=== PATIENT | male | born 1930 | race Caucasian/White ===

== ENCOUNTER 2018-07-07 10:54 | Observation (INO) ==
--- NOTE | 2018-07-07 11:23 | ED ---
HPI General Chief Complaint: Chest Pain Stated Complaint: cardiac Time Seen by Provider: 07/07/18 11:01 Source: patient Mode of arrival: ambulatory Limitations: no limitations History of Present Illness HPI narrative: Is an 87-year-old man presents to the emergency department complaining of left-sided chest discomfort, with some pressure, ongoing for the past day or so. Worse today. Constant. Has some mild intermittent symptoms occasionally has a history of CAD with CABG and ID in the remote past. Patient is a little bit of a poor historian, and has difficulty relating some details of his history. Follows with a inspecting machine adjuster. Is not sure who. He has prescription bottles from Dr. Flanagan. Is a history of Parkinson's disease as well. Patient was at home with his who is his primary caregiver. He walks with a walker. Denies any other recent illness or injury. Related Data Home Medications Medication Instructions Recorded Confirmed aspirin 81 mg PO DAILY 07/07/18 07/07/18 atenolol 25 mg PO DAILY 07/07/18 07/07/18 carbidopa-levodopa 1 tab PO QID 07/07/18 07/07/18 gabapentin 300 mg PO TID 07/07/18 07/07/18 memantine 5 mg PO BID 07/07/18 07/07/18 simvastatin 40 mg PO QPM 07/07/18 07/07/18 Allergies Allergy/AdvReac Type Severity Reaction Status Date / Time No Known Allergies Allergy Uncoded 04/23/15 14:35 Review of Systems ROS: all other systems reviewed are negative [facility] Medical History Medical History High cholesterol (Chronic) Hypertension (Chronic) Parkinson disease (Chronic) CAD (coronary artery disease) (Chronic) Surgical History Surgical History Hx of CABG (Chronic) Social History Social History Substance History: No History of Abuse Second Hand Smoke Exposure: No Smoking Status: Never smoker How Often Do You Have a Drink Containing Alcohol: Never Recent Travel in [facility] within the Last 8 Weeks: No Recent Out of Country Travel within the Last 8 Weeks: No Immunization History Tetanus Immunization: Unsure Hx Influenza Vaccine This Season: Yes Exam Narrative Exam Narrative: GENERAL: 87-year-old man, generally well-appearing, no acute distress per SKIN: Focused skin assessment warm/dry. HEAD: Atraumatic. Normocephalic. EYES: Pupils equal and round. No scleral icterus. No injection or drainage. ENT: No nasal bleeding or discharge. Mucous membranes pink and moist. Parkinsonian Stoic facies. NECK: Trachea midline. No JVD. CARDIOVASCULAR: Regular rate and rhythm. No murmur appreciated. Significant pectus. Midline CABG scar. Well-healed. RESPIRATORY: No accessory muscle use. Clear to auscultation. Breath sounds equal bilaterally. GASTROINTESTINAL: Abdomen soft, non-tender, nondistended. Hepatic and splenic margins not palpable. MUSCULOSKELETAL: No obvious deformities. Decreased muscle bulk. NEUROLOGICAL: Awake and alert. No obvious cranial nerve deficits. Motor grossly within normal limits. Normal speech. PSYCHIATRIC: Appropriate mood and affect; insight and judgment normal. Course Initial Documented Vital Signs Pulse Rate 68 07/07/18 10:56 Respiratory Rate 18 07/07/18 10:56 Blood Pressure 123/88 07/07/18 10:56 Pulse Oximetry 98 07/07/18 10:56 Last Documented Vital Signs Temperature 98.3 F 07/07/18 11:01 Pulse Rate 63 07/07/18 12:40 Respiratory Rate 18 07/07/18 12:40 Blood Pressure 151/67 H 07/07/18 12:40 Pulse Oximetry 96 07/07/18 12:40 Medical Decision Making [facility] Narrative Medical decision making narrative: Medical decision-making Is an 87-year-old male with a history of CAD presents emerged from left-sided chest pain. Relieved in route with nitroglycerin and aspirin. Looks generally well. Follows with cardiology. Will plan on initial evaluation chest x-ray labs EKG, reassess. Medical Screen Exam Complete: Yes Emergency Medical Condition: Yes Lab Data Result diagrams: 07/07/18 11:11 07/07/18 11:11 Lab Results 07/07/18 07/07/18 Range/Units 11:11 11:11 WBC 7.7 (4.0-11.0) th/mm3 RBC 5.09 (4.50-5.90) mil/mm3 Hgb 15.1 (13.0-17.0) gm/dL Hct 45.8 (39.0-51.0) % MCV 90.1 (80.0-100.0) fL MCH 29.6 (27.0-34.0) pg MCHC 32.9 (32.0-36.0) % RDW 15.4 (11.6-17.2) % Plt Count 151 (150-450) th/mm3 MPV 8.4 (7.0-11.0) fL Neut % (Auto) 75.5 H (16.0-70.0) % Lymph % (Auto) 12.0 (9.0-44.0) % [place] % (Auto) 11.0 H (0.0-8.0) % Eos % (Auto) 1.1 (0.0-4.0) % Baso % (Auto) 0.4 (0.0-2.0) % Neut # (Auto) 5.8 (1.8-7.7) th/mm3 Lymph # (Auto) 0.9 L (1.0-4.8) th/mm3 [place] # (Auto) 0.8 (0.0-0.9) th/mm3 Eos # (Auto) 0.1 (0.0-0.4) th/mm3 Baso # (Auto) 0.0 (0.0-0.2) th/mm3 WBC Differential . Differential Comment Auto diff final Sodium 139 (136-145) meq/L Potassium 4.2 (3.5-5.1) meq/L Chloride 108 H (98-107) meq/L Carbon Dioxide 21.4 (21.0-32.0) meq/L Anion Gap 10 (5-15) meq/L BUN 13 (7-18) mg/dL Creatinine 0.99 (0.60-1.30) mg/dL Estimated GFR 72 L (>89) mL/min Random Glucose 144 H (74-106) mg/dL Calcium 7.7 L (8.5-10.1) mg/dL Total Bilirubin 0.4 (0.2-1.0) mg/dL AST 25 (15-37) U/L ALT 10 L (12-78) U/L Alkaline Phosphatase 60 (45-117) U/L Troponin I Less than 0.02 L (0.02-0.05) ng/mL Total Protein 7.2 (6.4-8.2) g/dL Albumin 3.0 L (3.4-5.0) g/dL Imaging Data Radiologist's impression: Chest X-Ray 07/07/18 11:07 CONCLUSION: 1. Bibasilar patchiness consistent with probable pneumonia. Clinical correlation is recommended. 2. Cardiomegaly. 3. Degenerative changes and scoliosis of the thoracic spine. ECG Data Attestation: I personally reviewed and interpreted this ECG as follows: Interpretation: Normal sinus rhythm at a rate of 67, left bundle branch block, no definite evidence of acute ischemia. No significant change compared to January 08, 2015. Discharge Plan Discharge Disposition Patient Disposition: 30 Still Patient Physicians Team ED Provider: Robin Tomlin Primary Care Provider: Elias Morton Rxs /Orders / Referrals /Forms Prescriptions: No Action carbidopa-levodopa 25-250 mg Tablet 1 tab PO QID RF: 0 atenolol 25 mg Tablet 25 mg PO DAILY RF: 0 simvastatin 40 mg Tablet 40 mg PO QPM RF: 0 gabapentin 300 mg Capsule 300 mg PO TID RF: 0 aspirin 81 mg Tablet,Chewable 81 mg PO DAILY RF: 0 memantine 5 mg Tablet 5 mg PO BID RF: 0 Discharge Instructions Patient Printed Instructions: Chest Pain (ED) Discharge Interventions Interventions: Vital Signs Last Done: 07/07/18 11:01 Status ED Status: With Doctor
[2018-07-07 11:27] LABS: Baso % (Auto) 0.4 % (0.0-2.0); Eos # (Auto) 0.1 th/mm3 (0.0-0.4); Eos % (Auto) 1.1 % (0.0-4.0); Hematocrit 45.8 % (39.0-51.0); Hemoglobin 15.1 gm/dL (13.0-17.0); Lymph # (Auto) 0.9 th/mm3 (1.0-4.8); Mean Corpuscular HGB Conc 32.9 % (32.0-36.0); Mean Corpuscular Hemoglobin 29.6 pg (27.0-34.0); Mean Corpuscular Volume 90.1 fL (80.0-100.0); Mean Platelet Volume 8.4 fL (7.0-11.0); Mono # (Auto) 0.8 th/mm3 (0.0-0.9); Neut # (Auto) 5.8 th/mm3 (1.8-7.7); Neut % (Auto) 75.5 % (16.0-70.0); Platelet Count 151 th/mm3 (150-450); Red Blood Count 5.09 mil/mm3 (4.50-5.90); Red Cell Distribution Width 15.4 % (11.6-17.2); White Blood Count 7.7 th/mm3 (4.0-11.0)
--- NOTE | 2018-07-07 11:40 | XR ---
EXAM DATE: 07/07/2018 11:30 AM EDT AGE/SEX: 87 years / Male INDICATIONS: Chest and left shoulder pain. CLINICAL DATA: This is the patient's initial encounter. Patient reports that signs and symptoms have been present for 1 day and indicates a pain score of 4/10. MEDICAL/SURGICAL HISTORY: . heart attack Coronary artery stent. [place] [facility] [place]. . FINDINGS: Bibasilar patchiness is noted consistent with probable pneumonia. Clinical correlation is recommended . The heart is prominent. Median sternotomy wires are noted status post cardiac surgery. Degenerative changes and scoliosis of the thoracic spine are noted. CONCLUSION: 1. Bibasilar patchiness consistent with probable pneumonia. Clinical correlation is recommended. 2. Cardiomegaly. 3. Degenerative changes and scoliosis of the thoracic spine. Electronically signed by: Mark Lebron MD 07/07/2018 11:38 AM EDT
[2018-07-07 11:55] LABS: Alanine Aminotransferase 10 U/L (12-78); Alkaline Phosphatase 60 U/L (45-117); Total Protein 7.2 g/dL (6.4-8.2)
[2018-07-07 12:08] LABS: Anion Gap 10 meq/L (5-15); Aspartate Aminotransferase 25 U/L (15-37); Blood Urea Nitrogen 13 mg/dL (7-18); Calcium 7.7 mg/dL (8.5-10.1); Carbon Dioxide 21.4 meq/L (21.0-32.0); Chloride 108 meq/L (98-107); Glomerular Filtration Rate 72 mL/min (>89); Glucose,Random 144 mg/dL (74-106); Potassium 4.2 meq/L (3.5-5.1); Sodium 139 meq/L (136-145)
[2018-07-07] MEDS ORDERED: Azithromycin Inj 500 MG in Sodium Chlor 0.9% Inj 250 ML IV.SIG ONE (12:18)
[2018-07-07] MEDS ORDERED: Acetaminophen 325 MG Tablet PO PRN (12:48)
[2018-07-07] MEDS ORDERED: Bisacodyl 10 MG Supp RECTAL PRN (12:48)
--- NOTE | 2018-07-07 12:56 | P.HP ---
History of Present Illness Primary Care Physician: Elias Morton MD, PhD Chief Complaint: chest pain History of Present Illness: 87-year-old man with past medical history of coronary artery disease with CABG, hypertension, hyperlipidemia, Parkinsons, presents to the emergency department complaining of left-sided chest discomfort, with some pressure, ongoing for the past day or so. Worse today. The pain is intermittent and worse with exertion. Has some mild intermittent symptoms occasionally has a history of CAD with CABG and TX in the remote past. Patient is a little bit of a poor historian, and has difficulty relating some details of his history. Follows with a rn gastroenterology Dr. Mane. He has prescription bottles from Dr. Flanagan. Is a history of Parkinson's disease as well. Patient was at home with his who is his primary caregiver. He walks with a walker. Denies any other recent illness or injury. He is chest pain-free at this time. He also has some occasional cough no fever or chills. No sputum production. Feels tired. No urinary complaints. No tremors at this time. No focal motor deficit. Review of Systems All other systems reviewed negative except as [facility] - History History Provided By: Patient - Medical History Medical History: Medical History (Last Reviewed 07/07/18 @ 12:56 by Brenda Jung MD) High cholesterol Hypertension Parkinson disease CAD (coronary artery disease) - Surgical History Surgical History: Surgical History (Last Updated 07/07/18 @ 16:55 by Brenda Jung MD) History of appendectomy Hx of CABG - Family History Family History: Family History (Last Updated 07/07/18 @ 16:55 by Brenda Jung MD) Other Stroke - Tobacco History Second Hand Smoke Exposure: No Tobacco Use In Past 30 Days: No Smoking Status: Never smoker - Alcohol History How Often Do You Have a Drink Containing Alcohol: Never - Substance Use History Substance History: No History of Abuse - Travel History Recent Travel in the [place] Within the Last 8 Weeks: No Recent Travel Out of the Country Within the Last 8 Weeks: No - Immunization History Tetanus Immunization: Unsure Hx Influenza Vaccine This Season: Yes Medications and Allergies Active Medications: Active Medications Acetaminophen (Tylenol) 650 mg PO Q4H PRN PRN Reason: Temp > 100.4 Al Hydroxide/Mg Hydroxide (Milk Of Magnesia Liq) 30 ml PO Q12H PRN PRN Reason: Mild Constipation Aspirin (Aspirin Chew) 81 mg PO DAILY ARMANDO Atenolol (Tenormin) 25 mg PO DAILY ARMANDO Bisacodyl (Dulcolax Supp) 10 mg RECTAL DAILY PRN PRN Reason: SEVERE CONSITIPATION Carbidopa/Levodopa (Sinemet 25/250 Mg) 1 tab PO QID [facility] Enoxaparin Sodium (Lovenox Inj) 40 mg SQ Q24H ARMANDO Gabapentin (Neurontin) 300 mg PO TID ARMANDO Azithromycin 500 mg/ Sodium (Chloride) 250 mls @ 250 mls/hr IV.SIG ONCE ONE Stop: 07/07/18 13:17 Last Admin: 07/07/18 12:38 Dose: 250 mls/hr Ceftriaxone Sodium 1,000 mg/ (Sodium Chloride) 100 mls @ 200 mls/hr IV.SIG Q24H ARMANDO Azithromycin 500 mg/ Sodium (Chloride) 250 mls @ 250 mls/hr IV.SIG Q24H ARMANDO Lactulose (Lactulose Liq) 30 ml PO DAILY PRN PRN Reason: SEVERE CONSITIPATION Memantine (Namenda) 5 mg PO BID [facility] Non-Formulary Medication (Simvastatin [Simvastatin]) 40 mg PO QPM [facility]ANDO Ondansetron HCl (Zofran Inj) 4 mg IV.PUSH Q6H PRN PRN Reason: NAUSEA OR VOMITING Senna/Docusate Sodium (Siri-Colace) 1 tab PO BID [facility] Sennosides (Senokot) 17.2 mg PO Q12H PRN PRN Reason: Moderate Constipation Sodium Chloride (Ns Flush) 2 ml IV.FLUSH UNSCH PRN PRN Reason: FLUSH AFTER USING IV ACCESS Allergies Allergy/AdvReac Type Severity Reaction Status Date / Time No Known Allergies Allergy Uncoded 04/23/15 14:35 Home Medications Medication Instructions Recorded Confirmed Type aspirin 81 mg PO DAILY 07/07/18 07/07/18 History atenolol 25 mg PO DAILY 07/07/18 07/07/18 History carbidopa-levodopa 1 tab PO QID 07/07/18 07/07/18 History gabapentin 300 mg PO TID 07/07/18 07/07/18 History memantine 5 mg PO BID 07/07/18 07/07/18 History simvastatin 40 mg PO QPM 07/07/18 07/07/18 History Exam Vital signs: Vital Signs 07/07/18 10:56 07/07/18 11:01 07/07/18 12:04 Temperature 98.3 F Pulse Rate 68 66 61 Respiratory Rate 18 18 18 Blood Pressure 123/88 123/58 L 123/58 L Pulse Oximetry 98 95 95 07/07/18 12:40 Temperature Pulse Rate 63 Respiratory Rate 18 Blood Pressure 151/67 H Pulse Oximetry 96 Intake & Output 07/06/18 07/07/18 07/07/18 18:59 06:59 18:59 Weight 74.843 kg Narrative: GENERAL: Very pleasant 87-year-old man, well-appearing, no acute distress per SKIN: Focused skin assessment warm/dry. HEAD: Atraumatic. Normocephalic. EYES: Pupils equal and round. No scleral icterus. No injection or drainage. ENT: No nasal bleeding or discharge. Mucous membranes pink and moist. Parkinsonian Stoic facies. NECK: Trachea midline. No JVD. CARDIOVASCULAR: Regular rate and rhythm. No murmur appreciated. Significant pectus. Midline CABG scar. Well-healed. RESPIRATORY: No accessory muscle use. Clear to auscultation. Breath sounds equal bilaterally. GASTROINTESTINAL: Abdomen soft, non-tender, nondistended. Hepatic and splenic margins not palpable. MUSCULOSKELETAL: No obvious deformities. Decreased muscle bulk. NEUROLOGICAL: Awake and alert. No obvious cranial nerve deficits. Motor grossly within normal limits. Normal speech. Mild tremor right hand. PSYCHIATRIC: Appropriate mood and affect; insight and judgment normal. Results - Labs CBC & Chem 7: 07/07/18 11:11 07/07/18 11:11 Labs: Laboratory Results - last 24 hr 07/07/18 07/07/18 11:11 11:11 WBC 7.7 RBC 5.09 Hgb 15.1 Hct 45.8 MCV 90.1 MCH 29.6 MCHC 32.9 RDW 15.4 Plt Count 151 MPV 8.4 Neut % (Auto) 75.5 H Lymph % (Auto) 12.0 [place] % (Auto) 11.0 H Eos % (Auto) 1.1 Baso % (Auto) 0.4 Neut # (Auto) 5.8 Lymph # (Auto) 0.9 L [place] # (Auto) 0.8 Eos # (Auto) 0.1 Baso # (Auto) 0.0 WBC Differential . Differential Comment Auto diff final Sodium 139 Potassium 4.2 Chloride 108 H Carbon Dioxide 21.4 Anion Gap 10 BUN 13 Creatinine 0.99 Estimated GFR 72 L Random Glucose 144 H Calcium 7.7 L Total Bilirubin 0.4 AST 25 ALT 10 L Alkaline Phosphatase 60 Troponin I Less than 0.02 L Total Protein 7.2 Albumin 3.0 L - Imaging Impressions Chest X-Ray 07/07/18 11:07 CONCLUSION: 1. Bibasilar patchiness consistent with probable pneumonia. Clinical correlation is recommended. 2. Cardiomegaly. 3. Degenerative changes and scoliosis of the thoracic spine. Caprini VTE Risk Assessment Caprini VTE Risk Assessment: Moderate/High Risk (score >= 2) Caprini Risk Assessment Model: Point Value = 1 Point Value = 2 Point Value = 3 Point Value = 5 Age 41-60 Minor surgery BMI > 25 kg/m2 Swollen legs Varicose veins or History of unexplained or recurrent spontaneous Oral contraceptives or hormone replacement Sepsis (< 1 month) Serious lung disease, including pneumonia (< 1 month) Abnormal pulmonary function Acute myocardial infarction Congestive heart failure (< 1 month) History of inflammatory bowel disease Medical patient at bed rest Age 61-74 Arthroscopic surgery Major open surgery (> 45 min) Laparoscopic surgery (> 45 min) Malignancy Confined to bed (> 72 hours) Immobilizing plaster cast Central venous access Age >= 75 History of VTE Family history of VTE Factor V Leiden Prothrombin [id number] Lupus anticoagulant Anticardiolipin antibodies Elevated serum homocysteine Heparin-induced thrombocytopenia Other congenital or acquired thrombophilia Stroke (< 1 month) Elective arthroplasty Hip, pelvis, or leg fracture Acute spinal cord injury (< 1 month) Prophylaxis Regimen: Total Risk Factor Score Risk Level Prophylaxis Regimen 0-1 Low Early ambulation 2 Moderate Order ONE of the following: *Sequential Compression Device (SCD) *Heparin 5000 units SQ BID 3-4 Higher Order ONE of the following medications: *Heparin 5000 units SQ TID *Enoxaparin/Lovenox 40 mg SQ daily (WT < 150 kg, CrCl > 30 mL/min) *Enoxaparin/Lovenox 30 mg SQ daily (WT < 150 kg, CrCl > 10-29 mL/min) *Enoxaparin/Lovenox 30 mg SQ BID (WT < 150 kg, CrCl > 30 mL/min) AND/OR *Sequential Compression Device (SCD) 5 or more Highest Order ONE of the following medications: *Heparin 5000 units SQ TID (Preferred with Epidurals) *Enoxaparin/Lovenox 40 mg SQ daily (WT < 150 kg, CrCl > 30 mL/min) *Enoxaparin/Lovenox 30 mg SQ daily (WT < 150 kg, CrCl > 10-29 mL/min) *Enoxaparin/Lovenox 30 mg SQ BID (WT < 150 kg, CrCl > 30 mL/min) AND *Sequential Compression Device (SCD) Assessment and Plan - Plan Very pleasant 87-year-old male with a history of CAD with previous CABG and recent TX, hypertension, hyperlipidemia, dementia, Parkinson's presents to the emergency room with complaints of left-sided chest pain. Patient with at baseline EKG and normal initial troponin on admission, chest x-ray shows bilateral pneumonia. Admit observation. Vital signs are stable. Started IV antibiotics trend troponins and EKG and consult his cardiology Chest pain. Patient with history of coronary artery disease with CABG and recent TX Bilateral pneumonia per x-ray CXR reviewed 1. Bibasilar patchiness consistent with probable pneumonia. Clinical correlation is recommended. 2. Cardiomegaly. 3. Degenerative changes and scoliosis of the thoracic spine. EKG reviewed Normal sinus rhythm at a rate of 67, left bundle branch block, no definite evidence of acute ischemia. No significant change compared to December Trend troponins and EKG Consult patient cardiology Monitor on telemetry Urine for Legionella and pneumococcal Sputum culture if obtainable Oxygen supplement keep oxygen saturation more than 94% Duo nebs as needed No signs of sepsis Started IV antibiotics Rocephin and azithromycin Chronic medical problems appears stable. Restart home medications as appropriate DVT prophylaxis Lovenox Discussed Condition With: Patient, nurse, ED physician
[2018-07-07 14:28] LABS: Chol/HDL Ratio 2.25 Ratio; HDL Cholesterol 38.6 mg/dL (40.0-60.0)
[2018-07-07] MEDS: Gabapentin 300 MG Capsule PO SCH ×2 (14:59→18:43)
[2018-07-07] MEDS: Enoxaparin Inj 40 MG/0.4 ML Syringe SQ SCH (14:59)
[2018-07-07] MEDS: Senna/Docusate Sodium 8.6/50 MG Tablet PO SCH (20:41)
--- NOTE | 2018-07-08 00:52 | ECG ---
Date Performed: 07/07/2018 Time Performed: 10:59:58 PTAGE: 87 years EKG: Sinus rhythm LEFT BUNDLE BRANCH BLOCK ABNORMAL ECG PREVIOUS TRACING : 01/08/2015 21.12 Since the previous tracing, no significant change noted DOCTOR: Davian Woods Interpretating Date/Time 07/08/2018 00:51:14
[2018-07-08 07:28] LABS: Baso % (Auto) 0.4 % (0.0-2.0); Eos # (Auto) 0.1 th/mm3 (0.0-0.4); Eos % (Auto) 1.8 % (0.0-4.0); Hematocrit 44.9 % (39.0-51.0); Hemoglobin 15.2 gm/dL (13.0-17.0); Lymph # (Auto) 1.3 th/mm3 (1.0-4.8); Lymph % (Auto) 19.5 % (9.0-44.0); Mean Corpuscular HGB Conc 33.9 % (32.0-36.0); Mean Corpuscular Hemoglobin 29.8 pg (27.0-34.0); Mean Corpuscular Volume 87.9 fL (80.0-100.0); Mean Platelet Volume 8.3 fL (7.0-11.0); Mono # (Auto) 1.2 th/mm3 (0.0-0.9); Mono % (Auto) 17.3 % (0.0-8.0); Neut # (Auto) 4.2 th/mm3 (1.8-7.7); Platelet Count 142 th/mm3 (150-450); Red Blood Count 5.11 mil/mm3 (4.50-5.90); Red Cell Distribution Width 15.6 % (11.6-17.2); White Blood Count 6.8 th/mm3 (4.0-11.0)
[2018-07-08 08:03] LABS: Calcium 8.8 mg/dL (8.5-10.1); Carbon Dioxide 24.3 meq/L (21.0-32.0); Potassium 3.6 meq/L (3.5-5.1)
[2018-07-08] MEDS: Senna/Docusate Sodium 8.6/50 MG Tablet PO SCH ×2 (11:39→21:07)
[2018-07-08] MEDS: Gabapentin 300 MG Capsule PO SCH ×3 (11:39→19:50)
[2018-07-08] MEDS: Atenolol 25 MG Tablet PO SCH (11:39)
--- NOTE | 2018-07-08 13:24 | P.PN ---
Subjective Interval history: Follow-up follow-up on patient with chest pain, pneumonia. Patient seen and examined. Patient is confused. He denies any complaints. He is asking if he can go home. He denies any fever chills. Denies any chest pain or shortness of breath. He denies any cough or sputum production. Denies any nausea, vomiting or abdominal pain. Physical Exam Vital signs: Vital Signs 07/07/18 16:00 07/07/18 20:00 07/08/18 00:00 Temperature 98.2 F 97.7 F Pulse Rate 73 85 69 Respiratory Rate 18 18 18 Blood Pressure 151/67 H 134/72 139/63 Pulse Oximetry 93 L 94 L 92 L 07/08/18 00:15 07/08/18 03:15 07/08/18 04:20 Temperature 97.7 F Pulse Rate 65 68 66 Respiratory Rate 18 Blood Pressure 129/64 Pulse Oximetry 93 L 07/08/18 08:00 07/08/18 09:56 07/08/18 12:00 Temperature 97.4 F L 97.8 F Pulse Rate 72 80 68 Respiratory Rate 14 20 16 Blood Pressure 135/73 131/62 Pulse Oximetry 92 L 92 L Intake & Output 07/07/18 07/08/18 07/08/18 18:59 06:59 18:59 Intake Total 830 / 830 Balance 830 / 830 Weight 77.111 kg Intake: IV 350 / 350 Azithromycin Inj 500 MG In NS 250 / 250 Inj 250 ML @ 250 mls/hr IV.SIG ONCE ONE Rx#:[id number] Oral 480 / 480 Other: # Voids 3 # Incontinent Voids 1 Date of Last Bowel Movement 07/07/18 07/07/18 Weight On Admission 74.843 kg Narrative: GENERAL: WDWN elderly male patient, INAD. Awake and alert. SKIN: Warm and dry. HEAD: Atraumatic. Normocephalic. EYES: Pupils equal and round. No scleral icterus. No injection or drainage. ENT: No nasal bleeding or discharge. Mucous membranes pink and moist. NECK: Trachea midline. No JVD. CARDIOVASCULAR: Regular rate and rhythm. RESPIRATORY: No accessory muscle use. Clear to auscultation. Breath sounds equal bilaterally. GASTROINTESTINAL: Abdomen soft, non-tender, nondistended. Hepatic and splenic margins not palpable. MUSCULOSKELETAL: Extremities without clubbing, cyanosis, or edema. No obvious deformities. NEUROLOGICAL: Awake and alert. No obvious cranial nerve deficits. Motor grossly within normal limits. Five out of 5 muscle strength in the arms and legs. Normal speech. PSYCHIATRIC: Appropriate mood and affect; insight and judgment normal. Results - Labs CBC & Chem 7: 07/08/18 06:40 07/08/18 06:40 Laboratory Results - last 24 hr 07/07/18 07/07/18 07/07/18 11:11 11:11 17:00 WBC RBC Hgb Hct MCV MCH MCHC RDW Plt Count MPV Neut % (Auto) Lymph % (Auto) [place] % (Auto) Eos % (Auto) Baso % (Auto) Neut # (Auto) Lymph # (Auto) [place] # (Auto) Eos # (Auto) Baso # (Auto) WBC Differential Differential Comment Sodium Potassium Chloride Carbon Dioxide Anion Gap BUN Creatinine Estimated GFR Random Glucose Calcium Troponin I Cancelled Less than 0.02 L B-Natriuretic Peptide 85 Triglycerides 95 Cholesterol 87 L LDL Cholesterol, Calc 29 HDL Cholesterol 38.6 L Cholesterol/HDL Ratio 2.25 07/08/18 07/08/18 06:40 06:40 WBC 6.8 RBC 5.11 Hgb 15.2 Hct 44.9 MCV 87.9 MCH 29.8 MCHC 33.9 RDW 15.6 Plt Count 142 L MPV 8.3 Neut % (Auto) 61.0 Lymph % (Auto) 19.5 [place] % (Auto) 17.3 H Eos % (Auto) 1.8 Baso % (Auto) 0.4 Neut # (Auto) 4.2 Lymph # (Auto) 1.3 [place] # (Auto) 1.2 H Eos # (Auto) 0.1 Baso # (Auto) 0.0 WBC Differential . Differential Comment Auto diff final Sodium 138 Potassium 3.6 Chloride 106 Carbon Dioxide 24.3 Anion Gap 8 BUN 12 Creatinine 0.96 Estimated GFR 74 L Random Glucose 100 Calcium 8.8 D Troponin I B-Natriuretic Peptide Triglycerides Cholesterol LDL Cholesterol, Calc HDL Cholesterol Cholesterol/HDL Ratio Assessment and Plan - Plan 87-year-old male with a history of CAD with previous CABG and recent ID, hypertension, hyperlipidemia, dementia, Parkinson's presents to the emergency room with complaints of left-sided chest pain. Chest pain, r/o ACS Patient with history of coronary artery disease with CABG and recent ID EKG reviewed Normal sinus rhythm at a rate of 67, left bundle branch block, no definite evidence of acute ischemia Trops neg x 2 patient has no cardiac complaints today -Cardiology consulted, appreciate assistance -monitor on telemetry -ASA and statin daily Bilateral pneumonia per x-ray CXR shows Bibasilar patchiness consistent with probable pneumonia. 2. Cardiomegaly. 3. Degenerative changes and scoliosis of the thoracic spine. Urine for Legionella and pneumococcal Sputum culture if obtainable Oxygen supplement keep oxygen saturation more than 94% Duo nebs as needed Started IV antibiotics Rocephin and azithromycin, continue Hypertension -continue on Atenolol Dementia Parkinson's -continue on home medications DVT prophylaxis Lovenox Code Status: FULL Discussed Condition With: patient, nursing staff, Dr. Cisneros Discharge Planning: Not ready for discharge
[2018-07-08] MEDS: Azithromycin Inj 500 MG in Sodium Chlor 0.9% Inj 250 ML IV.SIG SCH (14:09)
[2018-07-08] MEDS: Enoxaparin Inj 40 MG/0.4 ML Syringe SQ SCH (14:12)
--- NOTE | 2018-07-08 14:20 | ECG ---
Date Performed: 07/07/2018 Time Performed: 18:06:26 PTAGE: 87 years EKG: Sinus rhythm LEFT BUNDLE BRANCH BLOCK ABNORMAL ECG PREVIOUS TRACING : 07/07/2018 10.59 DOCTOR: Chandana Fiore Interpretating Date/Time 07/08/2018 14:19:52
--- NOTE | 2018-07-09 00:43 | MB ---
cc: Davian Woods DO DATE: 07/08/2018 REASON FOR CONSULTATION: Chest pain. HISTORY OF PRESENT ILLNESS: Maxwell Carter is a pleasant 87-year-old male who presented to [facility] Emergency Room due to chest pain. He has also noticed some more significant shortness of breath. Overall, it is difficult to get a history from him due to his underlying dementia, but his is at the bedside, which does help. He states that he had some sharp and stabbing on the left side of his chest over the past few days on and off. He is unable to relate this to anything in particular. In seeing him, he currently denies chest pain or shortness of breath. PAST MEDICAL HISTORY: 1. Hypertension. 2. Hyperlipidemia. 3. Coronary artery disease. 4. Parkinson's disease. PAST SURGICAL HISTORY: 1. History of appendectomy. 2. Coronary artery bypass grafting (09/25/2014) with MCALLISTER to LAD and saphenous vein graft to OM1. ALLERGIES: NO KNOWN DRUG ALLERGIES. MEDICATIONS: 1. Zocor 40 mg every night. 2. Carbidopa/levodopa 25/250 four times a day. 3. Aspirin 81 mg daily. 4. Memantine 5 mg b.i.d. 5. Gabapentin 300 mg t.i.d. 6. Atenolol 25 mg daily. FAMILY HISTORY: Denies sudden cardiac in the family. SOCIAL HISTORY: The patient denies tobacco, alcohol or drug abuse. REVIEW OF SYSTEMS: Fourteen systems were reviewed including osteopathic. Pertinent positives and negatives above, otherwise negative. PHYSICAL EXAMINATION: VITAL SIGNS: Temperature 97.8, heart rate 68, blood pressure 131/62, respirations 16, pulse oximetry 92% on room air. GENERAL: The patient appears well, in no acute distress, alert and awake. He is pleasantly demented. HEENT: Extraocular muscles intact. Mucous membranes moist. NECK: Supple. No JVD at 45 degrees. No carotid bruits heard bilaterally. Carotid upstroke is brisk in nature. HEART: Regular rate and rhythm. Positive first and second heart sounds with no known murmurs, gallops or rubs. LUNGS: Have decreased breath sounds on the right side with minimal rhonchi. No rales noted. ABDOMEN: Soft, nontender, nondistended. No organomegaly noted. EXTREMITIES: Show no clubbing, cyanosis or edema. Femoral and distal pulses intact bilaterally. NEUROLOGIC: No focal deficits. SKIN: Warm, dry and intact. OSTEOPATHIC: No kyphoscoliosis, lordosis or paraspinal tender points. LABORATORY DATA: Hemoglobin 15.2, hematocrit 44.9, platelets 142. Potassium 3.6, BUN 12, creatinine 0.96. Troponin negative x3. Electrocardiogram (07/07/2018 at 1806): Sinus rhythm, left bundle branch block. IMPRESSIONS: 1. Atypical chest pain. 2. Coronary artery disease with a history of coronary artery bypass grafting. 3. Probable pneumonia. 4. Baseline dementia. 5. Left bundle branch block by EKG. 6. Hypertension. 7. Hyperlipidemia. RECOMMENDATIONS: 1. Mr. Carter presented with chest pain and is ruled out for an acute myocardial infarction. 2. Overall, his chest pain appears very atypical and it may be due to his current pneumonia. I discussed with him and his , who is his power of employee benefits attorney about how we should proceed. I did offer consideration of stress testing as he does have a known history of coronary artery disease with coronary artery bypass grafting, but ultimately she would like to avoid this and treat him medically, which overall I agree with. 3. He does have a left bundle branch block on his EKG and this is chronic going back a number of years and is most likely due to electrical degeneration due to his overall age. 4. We will continue him on his aspirin, Zocor and atenolol. 5. Upon discharge, he can followup with Dr. Mane. Thank you for allowing me to see Maxwell Carter. If there are any questions, please do not hesitate to call. Davian Woods DO VGP/lh , 05:02 PM , 05:14 PM
[2018-07-09 04:48] VITALS: BP 181/85; RESP 20; TEMP 97.9; O2SAT 98
--- NOTE | 2018-07-09 07:43 | P.DCO ---
- Physical Therapy Order: Evaluate and treat, Improve ambulation, Strength and gait training - Case Management Consult Yes - Certification I have seen patient Maxwell Carter on 07/09/18. My clinical findings support the need for the requested home health care services because: Deconditioned with increased weakness, Limited ability to care for self, Impaired cognition/judgement, High risk of falls I certify that my clinical findings support that this patient is homebound because: Impaired cognitive ability/safety, Unsteady gait/balance, Unsafe to leave home unassisted, Unable to use public transportation
--- NOTE | 2018-07-09 07:45 | P.DS ---
Date of admission: 07/07/18 12:45 Primary care physician: Elias Morton MD, PhD Attending physician on discharge: Vicki Cisneros Anticipated date of discharge: 07/09/18 Brief History from admission: 87-year-old man with past medical history of coronary artery disease with CABG, hypertension, hyperlipidemia, Parkinsons, presents to the emergency department complaining of left-sided chest discomfort, with some pressure, ongoing for the past day or so. Worse today. The pain is intermittent and worse with exertion. Has some mild intermittent symptoms occasionally has a history of CAD with CABG and DC in the remote past. Patient is a little bit of a poor historian, and has difficulty relating some details of his history. Follows with a compensation and benefits analyst Dr. Mane. He has prescription bottles from Dr. Flanagan. Is a history of Parkinson's disease as well. Patient was at home with his who is his primary caregiver. He walks with a walker. Denies any other recent illness or injury. He is chest pain-free at this time. He also has some occasional cough no fever or chills. No sputum production. Feels tired. No urinary complaints. No tremors at this time. No focal motor deficit. Patient update on day of discharge: Follow-up on patient with chest pain. Patient seen and examined. is at the bedside. Patient denies any complaints. Denies any cough, sputum production, chest pain or shortness of breath. Denies any fever chills. Denies any nausea, vomiting or abdominal pain. He wants to know when he can go home. states that he is at his baseline. DS: Diagnosis - Discharge Diagnosis (1) Chest pain Status: Acute (2) Pneumonia Status: Acute (3) Weakness Status: Acute (4) Gait instability Status: Acute (5) Risk for falls Status: Acute (6) Dementia Status: Acute DS: Medications - Discharge Medications Prescriptions: azithromycin [Zithromax] 500 mg PO DAILY #6 tab DS: Summary Hospital Course: Patient admitted with chest pain. Noted to have bilateral pneumonia per imaging studies. Patient started on IV Rocephin and azithromycin. Patient seen in consultation by cardiology who felt that the chest pain with atypical possibly due to his pneumonia. Patient's declined any further cardiac testing at this time. Patient noted to have left bundle branch block on EKG which is chronic. Patient ruled out of acute coronary syndrome. Patient cleared for discharge from cardiac standpoint. He was evaluated by PT who recommended home health care. Patient improved clinically. Antibiotics were transitioned from IV to oral. Urine antigen testing for pneumococcal and Legionella were negative. Case management assisted with discharge planning. Patient discharged from hospital and side effect her condition with instructions to follow-up with his compensation and benefits analyst and PCP as an outpatient. - Time Spent with Patient Total time spent providing and/or coordinating discharge services: Greater than 30 minutes - Quality: VTE Deep Vein Thrombosis/Pulmonary Embolism Present on Admission: No Exam Vital signs: Vital Signs 07/08/18 08:00 07/08/18 09:56 07/08/18 12:00 Temperature 97.4 F L 97.8 F Pulse Rate 72 80 68 Respiratory Rate 14 20 16 Blood Pressure 135/73 131/62 Pulse Oximetry 92 L 92 L 07/08/18 14:45 07/08/18 15:46 07/08/18 19:24 Temperature 97.6 F Pulse Rate 65 68 72 Respiratory Rate 15 16 16 Blood Pressure 144/67 H Pulse Oximetry 93 L 97 07/08/18 20:00 07/09/18 00:00 07/09/18 04:00 Temperature 98.2 F 98.4 F 97.9 F Pulse Rate 76 78 98 H Respiratory Rate 16 16 20 Blood Pressure 135/63 172/74 H 181/85 H Pulse Oximetry 93 L 95 98 Intake & Output 07/08/18 07/09/18 07/09/18 18:59 06:59 18:59 Intake Total 500 / 500 590 / 590 Balance 500 / 500 590 / 590 Intake: IV 0 / 0 350 / 350 Azithromycin Inj 500 MG In NS 0 / 0 250 / 250 Inj 250 ML @ 250 mls/hr IV.SIG Q24H ARMANDO Rx#:[id number] Rocephin Inj 1,000 MG In NS Inj 0 / 0 100 / 100 100 ML @ 200 mls/hr IV.SIG Q24H ARMANDO Rx#:[id number] Oral 500 / 500 240 / 240 Other: # Voids 3 4 Date of Last Bowel Movement 07/07/18 Narrative: GENERAL: WDWN elderly male patient, INAD. Awake and alert. Appears comfortable. Confused, oriented to self only. is at the bedside. SKIN: Warm and dry. HEAD: Atraumatic. Normocephalic. EYES: Pupils equal and round. No scleral icterus. No injection or drainage. ENT: No nasal bleeding or discharge. Mucous membranes pink and moist. NECK: Trachea midline. CARDIOVASCULAR: Regular rate and rhythm. RESPIRATORY: No accessory muscle use. Clear to auscultation. Breath sounds equal bilaterally. GASTROINTESTINAL: Abdomen soft, non-tender, nondistended. BS normal. MUSCULOSKELETAL: Extremities without clubbing, cyanosis, or edema. No obvious deformities. NEUROLOGICAL: Awake and alert. Oriented to self only. No obvious cranial nerve deficits. Motor grossly within normal limits. Able to move all extremities spontaneously. Normal speech. PSYCHIATRIC: Insight and judgment poor. Results Procedures completed during hospitalization: None Labs on day of discharge: Labs from last 24 hours 07/08/18 06:40 Sodium 138 Potassium 3.6 Chloride 106 Carbon Dioxide 24.3 Anion Gap 8 BUN 12 Creatinine 0.96 Estimated GFR 74 L Random Glucose 100 Calcium 8.8 D - Impressions ITS Impressions Chest X-Ray 07/07/18 11:07 CONCLUSION: 1. Bibasilar patchiness consistent with probable pneumonia. Clinical correlation is recommended. 2. Cardiomegaly. 3. Degenerative changes and scoliosis of the thoracic spine. Discharge Plan - Discharge Disposition Patient Disposition: Discharge Home - Discharge Condition Condition: Stable - Discharge Order Discharge Orders: Discharge Order (Routine); Ordered 07/09/18 Ordered By: Joanna Johnson - Discharge Details Anticipated Discharge Date: 07/09/18 - Physicians Team Primary Care Provider: Elias Morton Attending Provider: Vicki Cisneros Other Providers: Davian Woods DO
[2018-07-09 07:53] VITALS: PULSE 92
[2018-07-09] MEDS: Gabapentin 300 MG Capsule PO SCH ×2 (09:43→16:28)
[2018-07-09] MEDS: Senna/Docusate Sodium 8.6/50 MG Tablet PO SCH (09:44)
[2018-07-09] MEDS: Atenolol 25 MG Tablet PO SCH (09:44)
[2018-07-09] MEDS: Azithromycin Inj 500 MG in Sodium Chlor 0.9% Inj 250 ML IV.SIG SCH (16:27)
[2018-07-09] MEDS: Enoxaparin Inj 40 MG/0.4 ML Syringe SQ SCH (16:28)
== END 2018-07-09 17:07 | disposition home or self-care (01) ==
LOC: NEPE 10:54 → NEDA 10:54 → NEPGCP 13:37
PROVIDERS: ADMIT Family Medicine; ATTEND Family Medicine
DX: Z91.81 History of falling; E78.5 Hyperlipidemia, unspecified; Z82.3 Family history of stroke; F03.90 Unspecified dementia, unspecified severity, without behavioral disturbance, psychotic disturbance, mood disturbance, and anxiety; E78.00 Pure hypercholesterolemia, unspecified; I44.7 Left bundle-branch block, unspecified; Z95.1 Presence of aortocoronary bypass graft; I11.9 Hypertensive heart disease without heart failure; M41.9 Scoliosis, unspecified; Z90.49 Acquired absence of other specified parts of digestive tract; Z79.82 Long term (current) use of aspirin; J18.9 Pneumonia, unspecified organism; R07.9 Chest pain, unspecified; I25.10 Atherosclerotic heart disease of native coronary artery without angina pectoris; G20 Parkinson's disease